=== PATIENT | female | born 1980 | race Caucasian/White ===

== ENCOUNTER 2020-06-27 14:08 | Emergency (ER) | payer SELFPAY ==
[~2020-06-27] VITALS: Ht 162.5 cm; Wt 59.0 kg
[2020-06-27] MEDS ORDERED: Tobrex Ophth S2.5 ML OPH (14:23)
== END 2020-06-27 14:37 | disposition home or self-care (01) ==
LOC: ED 14:08
DX: S05.02XA Injury of conjunctiva and corneal abrasion without foreign body, left eye, initial encounter (principal); F17.200 Nicotine dependence, unspecified, uncomplicated; Z88.2 Allergy status to sulfonamides; X58.XXXA Exposure to other specified factors, initial encounter; Y93.89 Activity, other specified; Y92.89 Other specified places as the place of occurrence of the external cause; Y99.8 Other external cause status